=== PATIENT | male | born 1995 | race American Indian/Alaskan Native ===

== ENCOUNTER 2018-11-30 16:25 | Emergency (ER) | payer BC ==
[2018-11-30 16:50] VITALS: BP 137/81
[2018-11-30] MEDS ORDERED: ROCEPHIN IM ONE (16:50)
[2018-11-30] MEDS ORDERED: ZITHROMAX PO ONE (16:50)
[2018-11-30] MEDS ORDERED: XYLOCAINE 1% MPF 5 mL INFILTRATI ONE (16:50)
--- NOTE | 2018-11-30 16:50 | Emergency Department Report ---
ED Male HPI - General Chief complaint: Urogenital-Male Stated complaint: STD CHECK Time Seen by Provider: 11/30/18 16:49 Source: patient Mode of arrival: Ambulatory Limitations: No Limitations - History of Present Illness Initial comments: Patient is here with white penile discharge, had unprotected intercourse last night. h/o gonorrhea infection and this time it feels the same. no fever, chills, night sweats, or flank pain. MD Complaint: penile discharge Onset/Timin -: days(s) Location: penis Radiation: none Severity: mild Severity scale (0 -10): 4 Quality: burning Consistency: constant Improves with: none Worsens with: none new sexual partner discharge - Related Data Allergies Allergy/AdvReac Type Severity Reaction Status Date / Time No Known Allergies Allergy Unverified 11/30/18 16:48 ED Review of Systems ROS: Stated complaint: STD CHECK Other details as noted in HPI Comment: All other systems reviewed and negative Endocrine: denies: flushing, intolerance to cold Gastrointestinal: denies: nausea Genitourinary: urgency Musculoskeletal: back pain Psychiatric: denies: anxiety ED Past Medical Hx - Past Medical History Previous Medical History?: No - Surgical History Past Surgical History?: No - Family History Family history: no significant - Social History Smoking Status: Never Smoker Substance Use Type: None ED Physical Exam - General Limitations: No Limitations General appearance: alert, in no apparent distress - Head Head exam: Present: atraumatic, normocephalic - Eye Eye exam: Present: normal appearance, PERRL, EOMI - ENT ENT exam: Present: normal exam, normal orophraynx - Neck Neck exam: Present: normal inspection - Respiratory Respiratory exam: Present: normal lung sounds bilaterally - Cardiovascular Cardiovascular Exam: Present: regular rate, normal rhythm - GI/Abdominal GI/Abdominal exam: Present: soft, normal bowel sounds ED Course Vital Signs 11/30/18 16:48 Temperature 98.1 F Pulse Rate 62 Respiratory 14 Rate Blood Pressure 137/81 O2 Sat by Pulse 95 Oximetry Critical care attestation.: If time is entered above; I have spent that time in minutes in the direct care of this critically ill patient, excluding procedure time. ED Disposition Condition: Stable
== END 2018-11-30 17:41 | disposition home or self-care (01) ==
LOC: ED 16:25
DX: R56.9 Unspecified convulsions (principal)
CPT/HCPCS: 96372; 99282; J0696